=== PATIENT | male | born 2005 | race Caucasian/White ===

== ENCOUNTER 2024-01-15 12:08 | Emergency (ER) | payer MEDICAID, OTHER ==
--- NOTE | 2024-01-15 12:55 | XR ---
EXAMINATION TYPE: XR chest 2V DATE OF EXAM: 01/15/2024 12:43 PM CLINICAL INDICATION:Male, 18 years old with history of Cough; PHH COMPARISON: None TECHNIQUE: XR chest 2V Frontal and lateral views of the chest. FINDINGS: Lungs/Pleura: There is no evidence of pleural effusion, focal consolidation, or pneumothorax. Pulmonary vascularity: Unremarkable. Heart/mediastinum: Cardiomediastinal silhouette is unremarkable. Musculoskeletal: No acute osseous pathology. Scoliosis changes of the spine. IMPRESSION: No acute cardiopulmonary disease/process.
[2024-01-15] MEDS: KETOROLAC 15 MG/ML 1 ML VIAL IM STA (13:36)
[2024-01-15] MEDS: DEXAMETHASONE SOD PHOSPHATE 10 MG/ML 1 ML VIAL IM STA (13:37)
[2024-01-15] MEDS: BENZONATATE 100 MG CAP PO STA (13:37)
--- NOTE | 2024-01-15 13:40 | ED ---
URI HPI - General Chief Complaint: Upper Respiratory Infection Stated Complaint: Sore Throat Time Seen by Provider: 01/15/24 12:35 Source: patient, RN notes reviewed Mode of arrival: ambulatory Limitations: no limitations - History of Present Illness Initial Comments: This is a 18-year-old male who presents to the emergency department for coughing, congestion, and a sore throat. Symptoms started 4 days ago. States that he felt like he was getting better and then when he woke up this morning symptoms got much worse again. The sore throat is the most bothersome symptom. Reports a productive cough with clear sputum. Denies any history of asthma. He has not measured any fevers. MD Complaint: cough, sore throat, nasal congestion - Related Data Previous Rx's Medication Instructions Recorded Promethazine/Dextromethorphan 5 ml PO Q4-6H PRN #473 ml 01/15/24 [Promethazine-Dm 6.25-15 mg/5Ml] Allergies Allergy/AdvReac Type Severity Reaction Status Date / Time No Known Allergies Allergy Verified 01/15/24 12:14 Review of Systems ROS Statement: Those systems with pertinent positive or pertinent negative responses have been documented in the HPI. ROS Other: All systems not noted in ROS Statement are negative. Past Medical History Past Medical History: No Reported History Past Surgical History: No Surgical Hx Reported Smoking Status: Current every day smoker General Exam Limitations: no limitations General appearance: alert, in no apparent distress Head exam: Present: atraumatic, normocephalic, normal inspection Respiratory exam: Present: normal lung sounds bilaterally. Absent: respiratory distress, wheezes, rales, rhonchi, stridor Cardiovascular Exam: Present: regular rate, normal rhythm, normal heart sounds. Absent: systolic murmur, diastolic murmur, rubs, gallop, clicks Neurological exam: Present: alert, oriented X3, CN II-XII intact Psychiatric exam: Present: normal affect, normal mood Skin exam: Present: warm, dry, intact, normal color. Absent: rash Course Vital Signs 01/15/24 01/15/24 01/15/24 12:12 13:40 14:38 Temperature 98.1 F 98.2 F Pulse Rate 100 93 Respiratory 20 20 18 Rate Blood Pressure 128/72 122/84 O2 Sat by Pulse 98 98 Oximetry Medical Decision Making - Medical Decision Making This is a 18 year old male who presents to the emergency department for coughing, congestion, and a sore throat. Was pt. sent in by a medical professional or institution? @ -No Did you speak to anyone other than the patient for history? @ -No Did you review nursing and triage notes? @ -Yes, and I agree, it is accurate with regards to the patient's symptoms. Were old charts reviewed? @ -No Differential Diagnosis? @ -Differential Cough: Influenza, Covid, RSV, croup, allergic rhinitis, GERD, pneumonia, bronchitis, COPD, viral pharyngitis, streptococcal pharyngitis, this is not meant to be an all-inclusive list. EKG interpreted by me (3pts min.)? @ -Not obtained X-rays interpreted by me (1pt min.)? @ -Chest x-ray obtained, my interpretation identifies no localized consolidations or infiltrates. CT interpreted by me (1pt min.)? @ -Not obtained U/S interpreted by me (1pt. min.)? @ -Not obtained What testing was considered but not performed? (CT, X-rays, U/S, labs)? Why? @ -None What meds were considered but not given? Why? @ -None Did you discuss the management of the patient with other professionals? @ -No Did you reconcile home meds? @ -No Was smoking cessation discussed for >3mins.? @ -I discussed smoking cessation for greater than 3 minutes. The risk of smoking were discussed with the patient including but not limited to risks of cancer, stroke, coronary artery disease and COPD. Also discussed with patient were multiple methods of quitting smoking. Lastly we discussed the financial cost of smoking. Was critical care preformed (if so, how long)? @ -No Were there social determinants of health that impacted care today? How? (Homelessness, low income, unemployed, alcoholism, drug addiction, transportation, low edu. Level, literacy, decrease access to med. care, prison, rehab)? @ -No Was there de-escalation of care discussed even if they declined? (Discuss DNR or withdrawal of care, Hospice)? @ -No What co-morbidities impacted this encounter? (DM, HTN, Smoking, COPD, CAD, Cancer, CVA, Hep., AIDS, mental health diagnosis, sleep apnea, morbid obesity)? @ -Smoking Was patient admitted / discharged? @ -Discharged. COVID, influenza, and RSV testing negative. Rapid strep test negative. Symptoms likely viral in nature. Toradol and Tessalon Perles administered in the emergency department. He was also given a dose of Decadron for the pharyngitis. Prescription for Promethazine DM cough syrup provided with dosing instructions reviewed. Advised Ibuprofen and Tylenol as needed for any additional headaches and over the counter lozenges or throat anesthetic spray for his sore throat. Undiagnosed new problem with uncertain prognosis? @ -None Drug Therapy requiring intensive monitoring for toxicity (Heparin, Nitro, Insulin, Cardizem)? @ -None Were any procedures done? @ -None Diagnosis/symptom? @ -URI, pharyngitis Acute, or Chronic, or Acute on Chronic? @ -Acute Uncomplicated (without systemic symptoms) or Complicated (systemic symptoms)? @ -Uncomplicated Side effects of treatment? @ -None Exacerbation, Progression, or Severe Exacerbation] @ -Not applicable Poses a threat to life or bodily function? @ -No Return precautions reviewed in depth, the patient is instructed to return to the emergency department with any new, worsening, or concerning symptoms. Patient verbalized understanding. This case was discussed in detail with the attending ED physician, Dr. Umanzor. Presentation, findings, and treatment plan discussed in detail as well. - Lab Data Lab Results 01/15/24 01/15/24 Range/Units 12:35 12:35 Influenza Type A (PCR) Not Detected (Not Detectd) Influenza Type B (PCR) Not Detected (Not Detectd) RSV (PCR) Not Detected (Not Detectd) SARS-CoV-2 (PCR) Not Detected (Not Detectd) Group A Strep (PCR) NOT DETECTED (Not Detectd) - Radiology Data Radiology results: report reviewed, image reviewed Disposition Clinical Impression: Upper respiratory tract infection, Pharyngitis, Nicotine dependence Disposition: HOME SELF-CARE Instructions (If sedation given, give patient instructions): Upper Respiratory Infection (ED) Additional Instructions: Return to the emergency department with any new, worsening, or concerning symptoms. You can take the cough medication every 4-6 hours as needed. You can use [id number] anesthetic throat spray as well to help with the sore throa t or lozenges. Follow up with your primary care provider in 1-2 days. Prescriptions: Promethazine/Dextromethorphan [Promethazine-Dm 6.25-15 mg/5Ml] 5 ml PO Q4-6H PRN #473 ml PRN Reason: Cough Is patient prescribed a controlled substance at d/c from ED?: No Referrals: Nonstaff,Physician [Primary Care Provider] - 1-2 days Time of Disposition: 14:12
[2024-01-15 14:41] VITALS: BP 122/84; PULSE 93; RESP 18; TEMP 98.2
== END 2024-01-15 15:11 | disposition home or self-care (01) ==
LOC: EC 12:08
DX: J02.9 Acute pharyngitis, unspecified (principal); F17.200 Nicotine dependence, unspecified, uncomplicated
CPT/HCPCS: 87651; 87636; 71046; 99283; 96372 ×2; J1100; J1885